=== PATIENT | female | born 1940 | race Caucasian/White ===

== ENCOUNTER 2017-02-27 15:53 | Emergency (ER) | payer MEDICARE, BC ==
[~2017-02-27] VITALS: Ht 154.9 cm; Wt 54.9 kg
[2017-02-27] MEDS ORDERED: BUPR300T52 PO (16:17)
[2017-02-27] MEDS ORDERED: CELE100C PO (16:17)
[2017-02-27] MEDS ORDERED: PARO20TA51 PO (16:17)
[2017-02-27] MEDS ORDERED: ESTR-31 PO (16:17)
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
--- NOTE | 2017-02-27 16:45 | NUR ---
AT BEDSIDE PERFORMING MSE
[2017-02-27] MEDS: HYDROCODONE/APAP 5-325MG TABLET PO ONE (16:59)
--- NOTE | 2017-02-27 17:00 | NUR ---
MD DESAI REMOVED NECK COLLAR
[2017-02-27] MEDS ORDERED: HYDROCODONE/APAP 5-325MG TABLET ONE (17:08)
--- NOTE | 2017-02-27 17:09 | NUR ---
INFORMED RADIOLOGY DEPT REGARDING PENDING CT. DEPT AWARE
[2017-02-27 18:06] VITALS: BP 115/61
--- NOTE | 2017-02-27 18:06 | NUR ---
Patient discharged to home in stable conditon. Written and verbal after care instructions given, along with RX for Mercer as prescribed by MD. Patient verbalizes understanding of instructions. No further questions or concerns noted prior on leaving the ED.
--- NOTE | 2017-02-27 18:08 | NUR ---
PT VERBALIZED, "I'LL COME BACK TOMORROW FOR MY CD". MD DESAI AWARE
== END 2017-02-27 18:09 | disposition home or self-care (01) ==
LOC: ER 15:56
DX: S16.1XXA Strain of muscle, fascia and tendon at neck level, initial encounter (principal); F41.9 Anxiety disorder, unspecified; F32.9 Major depressive disorder, single episode, unspecified; M54.5 Low back pain; M12.88 Other specific arthropathies, not elsewhere classified, other specified site; Z88.6 Allergy status to analgesic agent; V89.2XXA Person injured in unspecified motor-vehicle accident, traffic, initial encounter; Y93.89 Activity, other specified; Y99.8 Other external cause status; Y92.89 Other specified places as the place of occurrence of the external cause
CPT/HCPCS: 72050; 72100; A4663